=== PATIENT | female | born 2000 | race Caucasian/White ===

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

== ENCOUNTER 2018-08-18 14:33 | Emergency (ER) | payer OTHER ==
[2018-08-18 15:04] VITALS: BP 118/72; PULSE 76; TEMP 98.2; BMI 27.4
--- NOTE | 2018-08-18 15:05 | PDOC ---
Rapid Medical Evaluation Chief Complaint: Pain Time Seen by Provider: 08/18/18 14:59 Medical Evaluation: Allergies Allergy/AdvReac Type Severity Reaction Status Date / Time No Known Allergies Allergy Verified 08/25/17 18:55 Vital Signs Temp Pulse Resp BP Pulse Ox 98.2 F 76 20 118/72 100 08/18/18 15:00 08/18/18 15:00 08/18/18 15:00 08/18/18 15:00 08/18/18 15:00 08/18/18 15:04 Patient complaints of:lower abd crampinf since yesterday, 2 episodes of diarrhea , no other complaints Patient on brief exam: vss, mid llq tenderness, no distention Patient ordered for: labs and urine Patient to proceed to the ED
--- NOTE | 2018-08-18 15:38 | PDOC ---
History of Present Illness - General Chief Complaint: Pain Stated Complaint: LWR ABD PAIN Time Seen by Provider: 08/18/18 14:59 History Source: Patient Exam Limitations: No Limitations - History of Present Illness Initial Comments: 08/18/18 15:38 CHIEF COMPLAINT: This is an otherwise healthy 18-year-old female who presents for evaluation of 2 days of lower abdominal pain/cramping and diarrhea. She reports that the pain is severe, especially in the morning. It is worse on the left side but present on both. She denies fevers/chills, dysuria, or any other symptoms. She has noticed some scant white vaginal discharge. Patient was last sexually active 4-5 months ago. Vital signs on arrival are all within normal limits. HISTORY OF PRESENT ILLNESS: REVIEW OF SYSTEMS: GENERAL/CONSTITUTIONAL: No fever or chills. No weakness. No weight change. HEAD, EYES, EARS, NOSE AND THROAT: No change in vision. No ear pain or discharge. No sore throat. CARDIOVASCULAR: No chest pain or palpitations. RESPIRATORY: No cough, wheezing, or shortness of breath. GASTROINTESTINAL: Lower abdominal pain/cramping and nonbloody diarrhea for 2 days, approximately 2 episodes per day. GENITOURINARY: Scant vaginal discharge. No dysuria, frequency, or change in urination. MUSCULOSKELETAL: No joint or muscle swelling or pain. No neck or back pain. SKIN: No rash or easy bruising. NEUROLOGIC: No headache, vertigo, loss of consciousness, or loss of sensation. PSYCHIATRIC: No depression or anxiety. ENDOCRINE: No increased thirst. No abnormal weight change. HEMATOLOGIC/LYMPHATIC: No anemia, easy bleeding, or history of blood clots. ALLERGIC/IMMUNOLOGIC: No hives or skin allergy. No latex allergy. PHYSICAL EXAM: GENERAL: The patient is awake, alert, and fully oriented, in no acute distress. HEAD: Normal with no signs of trauma. ENT: Pupils equal, round and reactive to light, extraocular movements intact, sclera anicteric, conjunctiva clear. Neck supple. LUNGS: Clear to auscultation bilaterally. Normal excursion. No respiratory distress or use of accessory muscles. CV: RRR, S1/S2, no MRG. Cap refill < 2 sec. ABDOMEN: Soft, non-distended, non-tender. EXTREMITIES: Normal range of motion, no edema. NEUROLOGICAL: Normal speech, normal gait. CN II-XII grossly intact. PSYCH: Normal mood, normal affect. SKIN: Warm, dry, normal turgor, no rashes or lesions noted. HOMEMAKER COMPANION: Normal external exam. Scant white vaginal discharge, non-malodorous. No CMT. Mild left adnexal tenderness. Past History - Past Medical History Allergies/Adverse Reactions: Allergies Allergy/AdvReac Type Severity Reaction Status Date / Time No Known Allergies Allergy Verified 08/25/17 18:55 Home Medications: Ambulatory Orders Docusate Sodium [Colace] 100 mg PO TID #30 capsule 08/18/18 COPD: No - Surgical History Abdominal Surgery: Yes Appendectomy: Yes - Immunization History Immunization Up to Date: Yes - Suicide/Smoking/Psychosocial Hx Smoking History: Never smoked Have you smoked in the past 12 months: No Information on smoking cessation initiated: No Hx Alcohol Use: No Drug/Substance Use Hx: No *Physical Exam - Vital Signs Last Vital Signs Temp Pulse Resp BP Pulse Ox 98.2 F 76 20 118/72 100 08/18/18 15:00 08/18/18 15:00 08/18/18 15:00 08/18/18 15:00 08/18/18 15:00 ED Treatment Course - LABORATORY CBC & Chemistry Diagram: 08/18/18 15:55 08/18/18 15:55 Medical Decision Making - Medical Decision Making 08/18/18 17:51 A/P: 18-year-old female with lower abdominal pain and diarrhea. Differential includes but is not limited to viral gastroenteritis or pelvic pathology. Vaginal exam not consistent with PID. -Labs including CBC, CMP, UA/, stool culture if patient is able to provide -Urine GC chlamydia and genital culture sent -Transvaginal ultrasound to rule out cyst, torsion, TOA Patient signed out to MESSI Thomas to follow up ultrasound results and determine disposition. *DC/Admit/Observation/Transfer - Prescriptions Prescriptions: Docusate Sodium [Colace] 100 mg PO TID #30 capsule - Referrals Referrals: ON STAFF,NOT [Primary Care Provider] - - Patient Instructions - Post Discharge Activity
[2018-08-18] MEDS ORDERED: SODIUM CHLORIDE 1,000 ML IV STA (15:49)
[2018-08-18 16:06] LABS: BASO % 0.3 % (0-2.0); EOS % 0.9 % (0-4.5); HEMATOCRIT 44.8 % (32.4-45.2); HEMOGLOBIN 15.6 GM/dL (10.7-15.3); LYMPH % 31.6 % (8-40); MCH 32.3 pg (25.7-33.7); MCHC 34.7 g/dl (32.0-36.0); MEAN CELL VOLUME 92.9 fl (80-96); MEAN PLT VOLUME 8.9 fl (7.5-11.1); MONO % 8.4 % (3.8-10.2); NEUT % 58.8 % (42.8-82.8); RBC 4.82 M/mm3 (3.60-5.2); RDW 12.4 % (11.6-15.6); WHITE BLOOD COUNT 5.7 K/mm3 (4.0-10.0)
[2018-08-18 16:33] LABS: ALBUMIN 4.1 g/dl (3.4-5.0); BILIRUBIN,TOTAL 0.3 mg/dL (0.2-1); BLOOD UREA NITROGEN 8.7 mg/dL (7-18); CALCIUM 9.9 mg/dL (8.5-10.1); CREATININE 0.8 mg/dL (0.55-1.3); TOT PROT 7.8 g/dl (6.4-8.2)
[2018-08-18 17:09] LABS: PH,URINE 5.5 (5.0-8.0); URINE APPEARANCE CLEAR; URINE BILIRUBIN NEGATIVE (NEGATIVE); URINE COLOR YELLOW; URINE GLUCOSE (UA) NEGATIVE (NEGATIVE); URINE KETONE NEGATIVE (NEGATIVE); URINE LEUK ESTERASE NEGATIVE (NEGATIVE); URINE NITRITE NEGATIVE (NEGATIVE); URINE PROTEIN NEGATIVE (NEGATIVE); URINE UROBILINOGEN 0.2 mg/dL (0.2-1.0)
[2018-08-18 17:12] LABS: HCG,QUALITATIVE URINE Negative
[2018-08-18 18:07] LABS: PLATELET COUNT 240 K/MM3 (134-434)
--- NOTE | 2018-08-18 19:41 | PDOC ---
*Physical Exam - Vital Signs Last Vital Signs Temp Pulse Resp BP Pulse Ox 98.2 F 76 20 118/72 100 08/18/18 15:00 08/18/18 15:00 08/18/18 15:00 08/18/18 15:00 08/18/18 15:00 - Physical Exam General Appearance: Yes: Appropriately Dressed. No: Apparent Distress Respiratory/Chest: positive: Lungs Clear, Normal Breath Sounds. negative: Chest Tender, Respiratory Distress, Accessory Muscle Use Cardiovascular: positive: Regular Rhythm, Regular Rate. negative: Murmur Gastrointestinal/Abdominal: positive: Normal Bowel Sounds, Soft. negative: Tender Musculoskeletal: positive: Normal Inspection. negative: CVA Tenderness Extremity: positive: Normal Inspection Integumentary: positive: Normal Color, Dry, Warm Neurologic: positive: Alert, Normal Response, Motor Strength 07/09 ED Treatment Course - LABORATORY CBC & Chemistry Diagram: 08/18/18 15:55 08/18/18 15:55 - ADDITIONAL ORDERS Additional order review: Laboratory Results 08/18/18 08/18/18 16:16 15:55 Sodium 139 Potassium 4.0 Chloride 105 Carbon Dioxide 29 Anion Gap 4 L BUN 8.7 Creatinine 0.8 Est GFR (CKD-EPI)AfAm 123.01 Est GFR (CKD-EPI)NonAf 106.13 Random Glucose 96 Calcium 9.9 Total Bilirubin 0.3 AST 23 ALT 30 Alkaline Phosphatase 90 Total Protein 7.8 Albumin 4.1 Urine Color Yellow Urine Appearance Clear Urine pH 5.5 Ur Specific [place] 1.028 Urine Protein Negative Urine Glucose (UA) Negative Urine Ketones Negative Urine Blood Negative Urine Nitrite Negative Urine Bilirubin Negative Urine Urobilinogen 0.2 Ur Leukocyte Esterase Negative Urine HCG, Qual Negative 08/18/18 15:55 RBC 4.82 MCV 92.9 MCHC 34.7 RDW 12.4 MPV 8.9 Neutrophils % 58.8 Lymphocytes % 31.6 Monocytes % 8.4 Eosinophils % 0.9 Basophils % 0.3 - Medications Given in the ED: ED Medications Discontinued Medications Generic Name Dose Route Start Last Admin Trade Name Freq PRN Reason Stop Dose Admin Sodium Chloride 1,000 mls @ 1,000 mls/hr 08/18/18 15:49 08/18/18 16:45 Normal Saline - IV 08/18/18 16:48 1,000 mls/hr ASDIR STA Administration Progress Note - Progress Note Progress Note: Received signout from nurse practitioner Barbra. Briefly this is a 18-year-old woman presents emergency department for evaluation of lower abdominal cramping over the past 2 days. Patient with mild diarrhea. [employer] exam reported to me reveals left adnexal tenderness without CMT. Laboratory testing and read of transvaginal ultrasounds pending. Medical Decision Making - Medical Decision Making 08/18/18 20:19 Transvaginal ultrasound as read by Dr. Gates: Right ovarian cyst and free pelvic fluid Urinalysis unremarkable. Chemistries unremarkable. CBC is unremarkable. Patient reports improvement in symptoms after the ultrasound. I will discharge patient home to follow-up with her financial services agent for continued evaluation of ovarian cyst. I discussed the physical exam findings, ancillary test results and final diagnoses with the patient. I answered all of the patient's questions. The patient was satisfied with the care received and felt comfortable with the discharge plan and treatment plan. The patient will call their primary care physician within 24 hours to arrange follow-up and will return to the Emergency Department with any new, persistent or worsening symptoms. *DC/Admit/Observation/Transfer Diagnosis at time of Disposition: Ovarian cyst Qualifiers: Laterality: right Qualified Code(s): N83.201 - Unspecified ovarian cyst, right side - Discharge Dispostion Disposition: HOME Condition at time of disposition: Stable Decision to Admit order: No - Prescriptions Prescriptions: Docusate Sodium [Colace] 100 mg PO TID #30 capsule - Referrals Referrals: ON STAFF,NOT [Primary Care Provider] - - Patient Instructions Additional Instructions: You have a right ovarian cyst on ultrasound. Make an appointment with her financial services agent for continued evaluation. Take Tylenol and/or Motrin for pain. Follow manufacture's instructions for appropriate dosage. Return to emergency department for any new or worsening symptoms. Thank you very much for choosing us to provide your emergent health care needs. - Post Discharge Activity
== END 2018-08-18 20:31 | disposition home or self-care (01) ==
LOC: JER 14:33
PROC: 3E0337Z Introduction of Electrolytic and Water Balance Substance into Peripheral Vein, Percutaneous Approach (ICD-10-PCS; principal; 2018-08-18)
DX: N83.201 Unspecified ovarian cyst, right side (principal)
CPT/HCPCS: 36415; 76830-TC; 80053; 81003; 84703; 85025; 87070; 87205; 87491; 87591; 96360; 99282-25; J7030